=== PATIENT | male | born 1990 | race Two or more races ===

== ENCOUNTER 2020-08-12 08:28 | Emergency (ER) | payer OTHER ==
[~2020-08-12] VITALS: Ht 182.9 cm; Wt 90.7 kg
[2020-08-12] MEDS ORDERED: SODIUM CHLORIDE 0.9% 1,000 ML IV ONE ×2 (09:00)
[2020-08-12] MEDS ORDERED: PROCHLORPERAZINE EDISYLATE 5 MG/ML 2ML VIAL IV ONE (09:00)
[2020-08-12 09:17] LABS: Basophils # (auto) 0.1 10 ^3/uL (0-0.2); Basophils % (auto) 1.5 % (0.0-2.0); Eosinophils # (auto) 0.1 10 ^3/uL (0-0.8); Hemoglobin 14.4 g/dL (13.5-17.5); Lymphocytes # (auto) 1.7 10 ^3/uL (0.4-5.4); Lymphocytes % (auto) 24.2 % (10.0-50.0); Mean Corpuscular Hemoglobin 30.6 pg (28.0-32.0); Mean Corpuscular Hgb Conc. 35.1 g/dL (32.0-36.0); Mean Corpuscular Volume 87.1 fL (80.0-100.0); Monocytes # (auto) 0.4 10 ^3/uL (0-1.3); Monocytes % (auto) 5.4 % (0.0-12.0); Neutrophils # (auto) 4.8 10 ^3/uL (1.6-8.6); Neutrophils % (auto) 67.9 % (37.0-80.0); Platelet Count (auto) 347 10^3/uL (140-450); Red Cell Distribution Width 14.4 % (11.8-14.3); White Blood Cell 7.1 10^3/uL (4.4-10.8)
[2020-08-12 09:22] LABS: Alcohol, Urine < 3.0 mg/dL (0-10); Amphetamine Screen, Urine NEGATIVE (NEGATIVE); Barbiturate Scree,Urine NEGATIVE (NEGATIVE); Benzodiazephine Screen, Urine NEGATIVE (NEGATIVE); Cannabinoid Screen, Urine POSITIVE (NEGATIVE); Cocaine Screen, Urine POSITIVE (NEGATIVE); Phencyclidine Screen, Urine NEGATIVE (NEGATIVE)
[2020-08-12 09:31] LABS: BUN/Creatinine Ratio 12.8; Calcium 9.6 mg/dL (8.5-10.1); Potassium 3.9 mmol/L (3.5-5.1)
[2020-08-12 09:32] LABS: Opiate Scree,Urine NEGATIVE (NEGATIVE)
[2020-08-12 09:33] LABS: Bilirubin, Total 0.2 mg/dL (0.2-1.0)
[2020-08-12 10:00] VITALS: BP 118/71
[2020-08-12] MEDS ORDERED: ACETAMINOPHEN 650 mg PER 20.3 mL UD PO ONE (10:00)
== END 2020-08-12 11:01 | disposition home or self-care (01) ==
LOC: ER 08:28
DX: N20.0 Calculus of kidney (principal); F12.10 Cannabis abuse, uncomplicated; F14.10 Cocaine abuse, uncomplicated
CPT/HCPCS: 36415; 74176; 80053; 80307; 83690; 85025; 85049; 96361; 96374; 99284; J0780; J7030